=== PATIENT | female | born 1960 | race Hispanic/Latino ===

== ENCOUNTER 2023-01-05 14:58 | Inpatient (IN) | payer OTHER ==
[~2023-01-05] VITALS: Ht 157.5 cm; Wt 76.2 kg
[2023-01-05] MEDS ORDERED: ACETAMINOPHEN 500 MG TABLET PO ONE (16:00)
[2023-01-05 16:02] LABS: APPEARANCE,URINE CLOUDY (CLEAR); BILIRUBIN,URINE NEGATIVE (NEGATIVE); COLOR,URINE YELLOW (YELLOW); GLUCOSE, URINE (UA) >=1000 mg/dL (NEGATIVE); KETONES,URINE NEGATIVE (NEGATIVE); LEUKOCYTE ESTERASE ,URINE 25 Leu/uL (NEGATIVE); NITRATE,URINE NEGATIVE (NEGATIVE); PH,URINE 5.5 (5.0-8.0); PROTEIN,URINE 50 mg/dL (NEGATIVE); UROBILINOGEN,URINE 0.2 mg/dL (0.2-1.0)
[2023-01-05 16:03] LABS: BACTERIA,URINE FEW /HPF (None Seen); MUCUS,URINE RARE LPF (None Seen); RBC,URINE 0-1 /HPF (0-1); SQUAMOUS EPITHELIAL CELL,UR FEW /HPF (0-2)
[2023-01-05 16:10] LABS: HEMATOCRIT 35.8 % (36-48); LYMPHOCYTES % (AUTO) 10.2 % (21.0-51.0); MEAN CORPUSCULAR HEMOGLOBIN 28.5 pg (27.0-33.0); MEAN CORPUSCULAR HGB CONC 34.1 g/dL (32.0-36.0); MEAN CORPUSCULAR VOLUME 83.6 fL (79-99); MONOCYTES % (AUTO) 4.6 % (3.0-13.0); NEUTROPHILS % (AUTO) 83.5 % (40.0-77.0); PLATELET COUNT (AUTO) 126 K/uL (130-400); RED BLOOD CELL COUNT(AUTO) 4.28 MIL/uL (4.00-5.50); RED CELL DISTRIBUTION WIDTH 13.3 % (11.0-15.5)
[2023-01-05 16:22] LABS: CARBON DIOXIDE 23 mmol/L (21-32); CHLORIDE 94 mmol/L (101-111); CREATININE 1.3 mg/dL (0.5-1.5); GLOMERULAR FILTR. RATE CALC 46 mL/min (>90); GLUCOSE,RANDOM 394 mg/dL (70-105); POTASSIUM 3.9 mmol/L (3.5-5.1); SODIUM SERUM 129 mmol/L (136-145); UREA NITROGEN, BLOOD 24 mg/dL (7-18)
[2023-01-05 16:38] LABS: ALANINE AMINOTRANSFERASE 418 U/L (12-78); ALBUMIN 2.7 g/dL (3.5-5.0); TOTAL PROTEIN, SERUM 7.1 g/dL (6.0-8.3)
[2023-01-05 16:40] LABS: ASPARTATE AMINOTRANSFERASE 1069 U/L (10-37)
[2023-01-05 16:59] LABS: BAND NEUTROPHILS % (MANUAL) 5 % (0-2); LYMPHOCYTES % (MANUAL) 10 % (22-44); MONOCYTES % (MANUAL) 4 % (2-9); SEGMENTED NEUTROPHILS % 81 % (40-70)
[2023-01-05] MEDS ORDERED: 0.9%NACL 1000ML 1,000 ML IV ONE (17:00)
[2023-01-05 17:04] LABS: MAN.DIFF COMMENT-IMPRESSION MANUAL DIFFERENTIAL
[2023-01-05 17:05] LABS: PLATELET MORPHOLOGY COMMENT SLIGHTLY DECREASED
[2023-01-05 17:43] LABS: INR 1.27 (0.85-1.15); PROTHROMBIN TIME 13.7 SEC (9.6-11.6)
[2023-01-05 17:44] LABS: PARTIAL THROMBOPLASTIN TIME 32.2 SEC (26.3-35.5)
[2023-01-05] MEDS ORDERED: GLUCAGON 1MG KIT 1 MG ML IM PRN (19:30)
[2023-01-05] MEDS ORDERED: DEXTROSE 50%-WATER 50 ML DISP.SYRIN IV PRN (19:30)
[2023-01-05] MEDS ORDERED: DOXYCYCLINE 100MG+NS 250ML IV SCH (20:00)
[2023-01-05] MEDS ORDERED: 0.9%NACL 1000ML 1,000 ML IV SCH (20:00)
[2023-01-05] MEDS ORDERED: ONDANSETRON 4MG INJ IV PRN (20:00)
[2023-01-05] MEDS ORDERED: NITROGLYCERIN 0.4 MG SL TAB SL PRN (20:00)
[2023-01-05] MEDS ORDERED: IBUPROFEN 600 MG TABLET PO PRN (20:30)
[2023-01-05] MEDS: DOXYCYCLINE 100MG+NS 250ML 250 ML IV SCH (20:42)
[2023-01-05] MEDS: 0.9%NACL 1000ML 1,000 ML IV SCH (20:43)
[2023-01-05] MEDS: INSULIN HUMULIN R 100 UNIT/ML 3ML SQ SCH ×2 (21:00→21:06)
[2023-01-05] MEDS: FAMOTIDINE 20MG TAB PO SCH (21:19)
[2023-01-05 21:26] LABS: HEMOGLOBIN A1C 13.6 % (4.0-6.0)
[2023-01-05 21:40] LABS: ACETAMINOPHEN 4 mcg/mL (10-30); AMYLASE 16 U/L (25-115); LIPASE 79 U/L (114-286)
[2023-01-05 22:50] VITALS: BP 143/73
[2023-01-06 00:01] LABS: CREATININE 1.4 mg/dL (0.5-1.5); POTASSIUM 4.1 mmol/L (3.5-5.1)
[2023-01-06] MEDS ORDERED: IBUPROFEN 400 MG TABLET ONE (03:36)
[2023-01-06 03:44] VITALS: BP 102/59
[2023-01-06 04:14] LABS: HEPATITIS A IGM ANTIBODY Non-Reactive (Nonreactive); HEPATITIS B CORE IGM ANTIBODY Non-Reactive (Negative); HEPATITIS B SURFACE ANTIGEN Non-Reactive (Nonreactive); HEPATITIS C ANTIBODY Non-Reactive (Nonreactive)
[2023-01-06 05:52] LABS: BASOPHILS % (AUTO) 0.6 % (0.0-5.0); HEMATOCRIT 29.7 % (36-48); LYMPHOCYTES % (AUTO) 9.9 % (21.0-51.0); MEAN CORPUSCULAR HEMOGLOBIN 28.8 pg (27.0-33.0); MEAN CORPUSCULAR VOLUME 82.3 fL (79-99); MONOCYTES % (AUTO) 2.3 % (3.0-13.0); NEUTROPHILS % (AUTO) 86.2 % (40.0-77.0); PLATELET COUNT (AUTO) 91 K/uL (130-400); RED BLOOD CELL COUNT(AUTO) 3.61 MIL/uL (4.00-5.50); RED CELL DISTRIBUTION WIDTH 13.2 % (11.0-15.5); WHITE BLOOD COUNT (AUTO) 4.8 K/uL (4.8-10.8)
[2023-01-06] MEDS: 0.9%NACL 1000ML 1,000 ML IV SCH ×2 (06:00→16:21)
[2023-01-06 06:15] LABS: CREATININE 1.3 mg/dL (0.5-1.5); MAGNESIUM 1.6 mg/dL (1.80-2.40); POTASSIUM 3.2 mmol/L (3.5-5.1); TOTAL PROTEIN, SERUM 5.6 g/dL (6.0-8.3)
[2023-01-06] MEDS: INSULIN HUMULIN R 100 UNIT/ML 3ML SQ SCH ×3 (06:40→20:34)
[2023-01-06 08:00] VITALS: BP 143/78
[2023-01-06] MEDS ORDERED: POTASSIUM CHLORIDE 20MEQ/100ML 100 ML IV PRN (08:30)
[2023-01-06] MEDS: DOXYCYCLINE 100MG+NS 250ML 250 ML IV SCH ×2 (09:09→20:32)
[2023-01-06] MEDS: POTASSIUM CHLORIDE 10% ELIXIR 20 MEQ/15 ML UDCUP PO PRN (10:44)
[2023-01-06 12:00] VITALS: BP 91/54
[2023-01-06] MEDS ORDERED: METF500S9 PO (15:24)
[2023-01-06 16:00] VITALS: BP 100/55
[2023-01-06] MEDS: MAGNESIUM 2GM PREMIX 50ML 50 ML IV PRN (16:19)
[2023-01-06] MEDS: KCL 20 MEQ ERTAB PO PRN (16:20)
[2023-01-06 20:00] VITALS: BP 123/70
[2023-01-06] MEDS: FAMOTIDINE 20MG TAB PO SCH (20:34)
[2023-01-06] MEDS: IBUPROFEN 400 MG TABLET PO PRN (21:26)
[2023-01-07] VITALS: BP 100/59
[2023-01-07 00:16] LABS: AMPHET/METH SCREEN,URINE NEGATIVE (NEGATIVE); BARBITURATE SCREEN, URINE NEGATIVE (NEGATIVE); BENZODIAZEPINES SCREEN,URINE NEGATIVE (NEGATIVE); CANNABINOID SCREEN,URINE NEGATIVE (NEGATIVE); COCAINE SCREEN,URINE NEGATIVE (NEGATIVE); OPIATE SCREEN,URINE NEGATIVE (NEGATIVE); PHENCYCLIDINE SCREEN,URINE NEGATIVE (NEGATIVE)
[2023-01-07] MEDS: 0.9%NACL 1000ML 1,000 ML IV SCH ×3 (02:00→22:00)
[2023-01-07 04:00] VITALS: BP 101/50
[2023-01-07 05:38] LABS: BASOPHILS % (AUTO) 0.7 % (0.0-5.0); HEMATOCRIT 31.6 % (36-48); LYMPHOCYTES % (AUTO) 12.6 % (21.0-51.0); MEAN CORPUSCULAR HEMOGLOBIN 28.3 pg (27.0-33.0); MEAN CORPUSCULAR HGB CONC 34.5 g/dL (32.0-36.0); MEAN CORPUSCULAR VOLUME 82.1 fL (79-99); MONOCYTES % (AUTO) 3.9 % (3.0-13.0); NEUTROPHILS % (AUTO) 81.9 % (40.0-77.0); PLATELET COUNT (AUTO) 88 K/uL (130-400); RED BLOOD CELL COUNT(AUTO) 3.85 MIL/uL (4.00-5.50); RED CELL DISTRIBUTION WIDTH 13.9 % (11.0-15.5); WHITE BLOOD COUNT (AUTO) 7.5 K/uL (4.8-10.8)
[2023-01-07 05:48] LABS: ALBUMIN 1.8 g/dL (3.5-5.0); CREATININE 1.4 mg/dL (0.5-1.5); MAGNESIUM 2.2 mg/dL (1.80-2.40); POTASSIUM 3.6 mmol/L (3.5-5.1); TOTAL PROTEIN, SERUM 5.2 g/dL (6.0-8.3)
[2023-01-07 05:59] LABS: % IRON SATURATION 9.4 % (22-44)
[2023-01-07] MEDS: INSULIN HUMULIN R 100 UNIT/ML 3ML SQ SCH ×4 (06:06→20:22)
[2023-01-07 08:00] VITALS: BP 104/63
[2023-01-07] MEDS: DOXYCYCLINE 100MG+NS 250ML 250 ML IV SCH ×2 (09:02→20:17)
[2023-01-07 12:00] VITALS: BP 87/57
[2023-01-07 16:00] VITALS: BP 104/61
[2023-01-07] MEDS: IBUPROFEN 400 MG TABLET PO PRN (19:16)
[2023-01-07 20:00] VITALS: BP 126/63
[2023-01-07] MEDS: FAMOTIDINE 20MG TAB PO SCH (20:18)
[2023-01-08] VITALS (7 sets, daily range): BP systolic 94–119; BP diastolic 52–72
[2023-01-08 05:18] LABS: BASOPHILS % (AUTO) 0.6 % (0.0-5.0); EOSINOPHILS % (AUTO) 0.4 % (0.0-8.0); HEMATOCRIT 30.8 % (36-48); LYMPHOCYTES % (AUTO) 19.9 % (21.0-51.0); MEAN CORPUSCULAR HEMOGLOBIN 28.5 pg (27.0-33.0); MEAN CORPUSCULAR HGB CONC 34.7 g/dL (32.0-36.0); MEAN CORPUSCULAR VOLUME 82.1 fL (79-99); NEUTROPHILS % (AUTO) 71.8 % (40.0-77.0); PLATELET COUNT (AUTO) 117 K/uL (130-400); RED BLOOD CELL COUNT(AUTO) 3.75 MIL/uL (4.00-5.50); RED CELL DISTRIBUTION WIDTH 14.2 % (11.0-15.5); WHITE BLOOD COUNT (AUTO) 10.4 K/uL (4.8-10.8)
[2023-01-08 05:38] LABS: ALBUMIN 1.8 g/dL (3.5-5.0); CREATININE 1.3 mg/dL (0.5-1.5); MAGNESIUM 1.9 mg/dL (1.80-2.40); POTASSIUM 3.5 mmol/L (3.5-5.1); TOTAL PROTEIN, SERUM 5.3 g/dL (6.0-8.3)
[2023-01-08] MEDS: INSULIN HUMULIN R 100 UNIT/ML 3ML SQ SCH ×4 (06:13→21:32)
[2023-01-08] MEDS: DOXYCYCLINE 100MG+NS 250ML 250 ML IV SCH ×2 (08:32→21:28)
[2023-01-08] MEDS: 0.9%NACL 1000ML 1,000 ML IV SCH ×2 (08:34→18:36)
[2023-01-08] MEDS: MAGNESIUM 2GM PREMIX 50ML 50 ML IV PRN (15:39)
[2023-01-08] MEDS: KCL 20 MEQ ERTAB PO PRN (15:39)
[2023-01-08] MEDS: IBUPROFEN 400 MG TABLET PO PRN (16:40)
[2023-01-08] MEDS: FAMOTIDINE 20MG TAB PO SCH (21:29)
[2023-01-09] VITALS: BP 118/64
[2023-01-09 03:58] VITALS: BP 108/68
[2023-01-09] MEDS: 0.9%NACL 1000ML 1,000 ML IV SCH (04:00)
[2023-01-09 04:08] LABS: BASOPHILS % (AUTO) 0.4 % (0.0-5.0); EOSINOPHILS % (AUTO) 0.5 % (0.0-8.0); HEMATOCRIT 29.9 % (36-48); LYMPHOCYTES % (AUTO) 21.3 % (21.0-51.0); MEAN CORPUSCULAR HEMOGLOBIN 28.3 pg (27.0-33.0); MEAN CORPUSCULAR HGB CONC 34.8 g/dL (32.0-36.0); MEAN CORPUSCULAR VOLUME 81.5 fL (79-99); MONOCYTES % (AUTO) 7.1 % (3.0-13.0); NEUTROPHILS % (AUTO) 69.2 % (40.0-77.0); PLATELET COUNT (AUTO) 130 K/uL (130-400); RED BLOOD CELL COUNT(AUTO) 3.67 MIL/uL (4.00-5.50); RED CELL DISTRIBUTION WIDTH 14.1 % (11.0-15.5); WHITE BLOOD COUNT (AUTO) 12.8 K/uL (4.8-10.8)
[2023-01-09 04:21] LABS: ALBUMIN 1.8 g/dL (3.5-5.0); BILIRUBIN,DIRECT 0.9 mg/dL (0.0-0.3); CREATININE 1.2 mg/dL (0.5-1.5); MAGNESIUM 1.9 mg/dL (1.80-2.40); POTASSIUM 3.7 mmol/L (3.5-5.1); TOTAL PROTEIN, SERUM 5.4 g/dL (6.0-8.3)
[2023-01-09] MEDS: INSULIN HUMULIN R 100 UNIT/ML 3ML SQ SCH ×5 (06:47→22:07)
[2023-01-09 08:00] VITALS: BP 130/72
[2023-01-09] MEDS: DOXYCYCLINE 100MG+NS 250ML 250 ML IV SCH ×2 (08:19→22:04)
[2023-01-09 11:06] LABS: CRP QUANTITATIVE 132.7 mg/L (0.00-9.0)
[2023-01-09 12:00] VITALS: BP 109/51
[2023-01-09 16:00] VITALS: BP 117/66
[2023-01-09 19:57] VITALS: BP 135/84
[2023-01-09] MEDS: FAMOTIDINE 20MG TAB PO SCH (22:04)
[2023-01-10 00:28] VITALS: BP 121/59
[2023-01-10 04:42] VITALS: BP 115/67
[2023-01-10 05:46] LABS: BASOPHILS % (AUTO) 0.4 % (0.0-5.0); EOSINOPHILS % (AUTO) 0.7 % (0.0-8.0); HEMATOCRIT 29.3 % (36-48); LYMPHOCYTES % (AUTO) 27.2 % (21.0-51.0); MEAN CORPUSCULAR HEMOGLOBIN 27.9 pg (27.0-33.0); MEAN CORPUSCULAR HGB CONC 34.1 g/dL (32.0-36.0); MEAN CORPUSCULAR VOLUME 81.8 fL (79-99); MONOCYTES % (AUTO) 7.1 % (3.0-13.0); NEUTROPHILS % (AUTO) 62.5 % (40.0-77.0); PLATELET COUNT (AUTO) 202 K/uL (130-400); RED BLOOD CELL COUNT(AUTO) 3.58 MIL/uL (4.00-5.50); RED CELL DISTRIBUTION WIDTH 14.3 % (11.0-15.5); WHITE BLOOD COUNT (AUTO) 13.5 K/uL (4.8-10.8)
[2023-01-10 06:07] LABS: ALBUMIN 1.8 g/dL (3.5-5.0); CREATININE 0.9 mg/dL (0.5-1.5); POTASSIUM 3.5 mmol/L (3.5-5.1); TOTAL PROTEIN, SERUM 5.6 g/dL (6.0-8.3)
[2023-01-10] MEDS: INSULIN HUMULIN R 100 UNIT/ML 3ML SQ SCH ×7 (06:58→21:41)
[2023-01-10 08:00] VITALS: BP 110/68
[2023-01-10] MEDS: DOXYCYCLINE 100MG+NS 250ML 250 ML IV SCH ×2 (08:21→20:25)
[2023-01-10] MEDS: INSULIN GLARGINE 100 UNITS/ML 10 ML VIAL SQ SCH (08:24)
[2023-01-10] MEDS ORDERED: POLYETHYLENE GLYCOL 3350 17 GM POWD.PACK PO ONE (09:30)
[2023-01-10 12:00] VITALS: BP 112/65
[2023-01-10 16:00] VITALS: BP 114/72
[2023-01-10] MEDS: ZOSYN 3.375GM +NS 50ML IVPB SCH ×2 (16:55→21:00)
[2023-01-10] MEDS: POTASSIUM CHLORIDE 10% ELIXIR 20 MEQ/15 ML UDCUP PO PRN ×2 (17:28→17:29)
[2023-01-10 20:40] VITALS: BP 113/65
[2023-01-10] MEDS: FAMOTIDINE 20MG TAB PO SCH (21:40)
[2023-01-11 00:45] VITALS: BP 112/62
[2023-01-11] MEDS: ZOSYN 3.375GM +NS 50ML IVPB SCH ×3 (04:56→22:14)
[2023-01-11 05:06] VITALS: BP 138/75
[2023-01-11 05:16] LABS: BASOPHILS % (AUTO) 0.7 % (0.0-5.0); EOSINOPHILS % (AUTO) 0.8 % (0.0-8.0); HEMATOCRIT 29.3 % (36-48); LYMPHOCYTES % (AUTO) 28.5 % (21.0-51.0); MEAN CORPUSCULAR HEMOGLOBIN 28.2 pg (27.0-33.0); MEAN CORPUSCULAR HGB CONC 34.1 g/dL (32.0-36.0); MEAN CORPUSCULAR VOLUME 82.8 fL (79-99); MONOCYTES % (AUTO) 7.1 % (3.0-13.0); NEUTROPHILS % (AUTO) 61.3 % (40.0-77.0); PLATELET COUNT (AUTO) 277 K/uL (130-400); RED BLOOD CELL COUNT(AUTO) 3.54 MIL/uL (4.00-5.50); RED CELL DISTRIBUTION WIDTH 14.6 % (11.0-15.5); WHITE BLOOD COUNT (AUTO) 13.1 K/uL (4.8-10.8)
[2023-01-11 05:34] LABS: CREATININE 0.9 mg/dL (0.5-1.5); MAGNESIUM 1.7 mg/dL (1.80-2.40); POTASSIUM 3.9 mmol/L (3.5-5.1)
[2023-01-11 05:35] LABS: ALBUMIN 1.9 g/dL (3.5-5.0); TOTAL PROTEIN, SERUM 5.8 g/dL (6.0-8.3)
[2023-01-11] MEDS: MAGNESIUM 2GM PREMIX 50ML 50 ML IV PRN (06:16)
[2023-01-11] MEDS: INSULIN HUMULIN R 100 UNIT/ML 3ML SQ SCH ×7 (06:57→20:39)
[2023-01-11 08:00] VITALS: BP 100/66
[2023-01-11] MEDS: INSULIN GLARGINE 100 UNITS/ML 10 ML VIAL SQ SCH (09:37)
[2023-01-11] MEDS: DOXYCYCLINE 100MG+NS 250ML 250 ML IV SCH ×2 (09:37→20:50)
[2023-01-11 12:00] VITALS: BP 108/72
[2023-01-11 16:00] VITALS: BP 121/73
[2023-01-11 20:00] VITALS: BP 113/74
[2023-01-11] MEDS: FAMOTIDINE 20MG TAB PO SCH (20:50)
[2023-01-12] VITALS: BP 121/70
[2023-01-12] MEDS: IBUPROFEN 400 MG TABLET PO PRN ×2 (00:25→20:53)
[2023-01-12 04:00] VITALS: BP 105/60
[2023-01-12] MEDS: ZOSYN 3.375GM +NS 50ML IVPB SCH ×3 (04:41→22:50)
[2023-01-12] MEDS: INSULIN HUMULIN R 100 UNIT/ML 3ML SQ SCH ×7 (05:32→21:00)
[2023-01-12 08:00] VITALS: BP 100/68
[2023-01-12] MEDS: DOXYCYCLINE 100MG+NS 250ML 250 ML IV SCH ×2 (08:04→20:52)
[2023-01-12] MEDS: INSULIN GLARGINE 100 UNITS/ML 10 ML VIAL SQ SCH (08:06)
[2023-01-12 09:02] LABS: HEMATOCRIT 28.8 % (36-48); MEAN CORPUSCULAR HEMOGLOBIN 28.7 pg (27.0-33.0); MEAN CORPUSCULAR VOLUME 84.2 fL (79-99); RED BLOOD CELL COUNT(AUTO) 3.42 MIL/uL (4.00-5.50); RED CELL DISTRIBUTION WIDTH 15.2 % (11.0-15.5); WHITE BLOOD COUNT (AUTO) 11.4 K/uL (4.8-10.8)
[2023-01-12 09:17] LABS: BILIRUBIN,DIRECT 0.5 mg/dL (0.0-0.3); CREATININE 0.9 mg/dL (0.5-1.5); POTASSIUM 3.7 mmol/L (3.5-5.1); TOTAL PROTEIN, SERUM 5.8 g/dL (6.0-8.3)
[2023-01-12] MEDS ORDERED: VANCOMYCIN PROTOCOL PER PHARMACY IV SCH (10:00)
[2023-01-12] MEDS: VANCOMYCIN 1G/250ML KIT 250 ML IV SCH ×2 (10:40→21:53)
[2023-01-12 12:00] VITALS: BP 109/68
[2023-01-12 16:00] VITALS: BP 113/66
[2023-01-12] MEDS: ENOXAPARIN SODIUM 30 MG/0.3 ML SQ SCH (17:26)
[2023-01-12 21:01] VITALS: BP 119/66
[2023-01-12] MEDS: PANTOPRAZOLE 40 MG TAB DR PO SCH (21:10)
[2023-01-13] VITALS (7 sets, daily range): BP systolic 96–117; BP diastolic 55–88
[2023-01-13] MEDS: ZOSYN 3.375GM +NS 50ML IVPB SCH ×3 (05:08→22:30)
[2023-01-13] MEDS: INSULIN HUMULIN R 100 UNIT/ML 3ML SQ SCH ×7 (05:09→21:00)
[2023-01-13 05:21] LABS: BASOPHILS % (AUTO) 0.6 % (0.0-5.0); HEMATOCRIT 26.4 % (36-48); LYMPHOCYTES % (AUTO) 43.5 % (21.0-51.0); MEAN CORPUSCULAR HEMOGLOBIN 27.8 pg (27.0-33.0); MEAN CORPUSCULAR VOLUME 84.3 fL (79-99); MONOCYTES % (AUTO) 9.4 % (3.0-13.0); NEUTROPHILS % (AUTO) 44.3 % (40.0-77.0); PLATELET COUNT (AUTO) 310 K/uL (130-400); RED BLOOD CELL COUNT(AUTO) 3.13 MIL/uL (4.00-5.50); WHITE BLOOD COUNT (AUTO) 9.8 K/uL (4.8-10.8)
[2023-01-13 05:42] LABS: ALBUMIN 1.9 g/dL (3.5-5.0); BILIRUBIN,DIRECT 0.3 mg/dL (0.0-0.3); CREATININE 0.8 mg/dL (0.5-1.5); POTASSIUM 3.7 mmol/L (3.5-5.1); TOTAL PROTEIN, SERUM 5.6 g/dL (6.0-8.3)
[2023-01-13] MEDS: KCL 20 MEQ ERTAB PO PRN (06:28)
[2023-01-13] MEDS: DOXYCYCLINE 100MG+NS 250ML 250 ML IV SCH ×2 (08:22→21:12)
[2023-01-13] MEDS: PANTOPRAZOLE 40 MG TAB DR PO SCH ×2 (08:26→21:28)
[2023-01-13] MEDS: VANCOMYCIN 1G/250ML KIT 250 ML IV SCH (08:26)
[2023-01-13] MEDS: ENOXAPARIN SODIUM 30 MG/0.3 ML SQ SCH (08:27)
[2023-01-13] MEDS: INSULIN GLARGINE 100 UNITS/ML 10 ML VIAL SQ SCH (08:34)
[2023-01-13 14:13] LABS: B.BURGOR (LYME) IGG WB INTERP Negative (.); LYME IGM-WB INTERP Negative (.); LYME IGM-WB P23 AB Absent (.); LYME IGM-WB P39 AB Present (.); LYME IGM-WB P41 AB Absent (.)
[2023-01-13 15:14] LABS: ALPHA-1-ANTITRYPSIN 244 mg/dL (101-187); TYPHUS FEVER IGG <1:64 (Neg:<1:64); TYPHUS FEVER IGM <1:64 (Neg:<1:64)
[2023-01-14] MEDS: VANCOMYCIN 1G/250ML KIT 250 ML IV SCH ×2 (00:07→09:03)
[2023-01-14 04:08] VITALS: BP 114/57
[2023-01-14] MEDS: ZOSYN 3.375GM +NS 50ML IVPB SCH ×2 (06:21→14:05)
[2023-01-14] MEDS: INSULIN HUMULIN R 100 UNIT/ML 3ML SQ SCH ×4 (06:34→12:24)
[2023-01-14 07:15] VITALS: BP 139/72
[2023-01-14] MEDS: PANTOPRAZOLE 40 MG TAB DR PO SCH (09:02)
[2023-01-14] MEDS: ENOXAPARIN SODIUM 30 MG/0.3 ML SQ SCH (09:02)
[2023-01-14] MEDS: DOXYCYCLINE 100MG+NS 250ML 250 ML IV SCH (09:03)
[2023-01-14] MEDS: INSULIN GLARGINE 100 UNITS/ML 10 ML VIAL SQ SCH (09:05)
[2023-01-14 11:00] VITALS: BP 105/74
[2023-01-14 12:36] LABS: HEMATOCRIT 28.7 % (36-48); MEAN CORPUSCULAR HEMOGLOBIN 28.4 pg (27.0-33.0); MEAN CORPUSCULAR HGB CONC 33.1 g/dL (32.0-36.0); MEAN CORPUSCULAR VOLUME 85.7 fL (79-99); RED BLOOD CELL COUNT(AUTO) 3.35 MIL/uL (4.00-5.50); RED CELL DISTRIBUTION WIDTH 15.4 % (11.0-15.5); WHITE BLOOD COUNT (AUTO) 9.6 K/uL (4.8-10.8)
[2023-01-14 12:54] LABS: ALBUMIN 2.3 g/dL (3.5-5.0); BILIRUBIN,DIRECT 0.4 mg/dL (0.0-0.3); CREATININE 0.8 mg/dL (0.5-1.5); POTASSIUM 4.6 mmol/L (3.5-5.1); TOTAL PROTEIN, SERUM 6.4 g/dL (6.0-8.3)
[2023-01-14] MEDS ORDERED: INSLAN SQ (15:44)
== END 2023-01-14 15:45 | disposition home or self-care (01) | DRG 871 ==
LOC: EDH 14:58 → EDHIP 14:59 → 3CH 22:28
PROVIDERS: ADMIT Internal Medicine; ATTEND Internal Medicine
DX: A41.9 Sepsis, unspecified organism (principal); E43 Unspecified severe protein-calorie malnutrition; J18.9 Pneumonia, unspecified organism; K72.00 Acute and subacute hepatic failure without coma; E87.1 Hypo-osmolality and hyponatremia; N30.00 Acute cystitis without hematuria; D68.9 Coagulation defect, unspecified; B17.9 Acute viral hepatitis, unspecified; A69.20 Lyme disease, unspecified; J91.8 Pleural effusion in other conditions classified elsewhere; D69.6 Thrombocytopenia, unspecified; E11.65 Type 2 diabetes mellitus with hyperglycemia; E66.09 Other obesity due to excess calories; I10 Essential (primary) hypertension; Z79.84 Long term (current) use of oral hypoglycemic drugs; Z82.49 Family history of ischemic heart disease and other diseases of the circulatory system; Z83.3 Family history of diabetes mellitus; Z90.710 Acquired absence of both cervix and uterus; Z68.30 Body mass index [BMI] 30.0-30.9, adult
CPT/HCPCS: 36415; 71045; 71046; 71250; 74181; 76705; 80048; 80053; 80074; 80076; 80202; 80305; 81001; 82103; 82104; 82140; 82150; 82390; 82948; 83036; 83516; 83540; 83550; 83605; 83615; 83690; 83735; 84145; 84484; 85025; 85027; 85610; 85651; 85730; 86038; 86140; 86215; 86235; 86255; 86757; 87040; 87088; 93005; 93971; 97039; G0378; J1650; J1815; J2405; J2543; J3370; J3475; J3490; J7030